=== PATIENT | female | born 1950 | race Caucasian/White ===

== ENCOUNTER → 2016-09-04 | Outpatient (CLI) | payer MEDICAID ==
[~2016-09-04] MED LIST: ADVAIR 250/5028 PUFF IN; ALBUTEROL-200 PUFFS/ IH; ASPIRIN 81MG TA81 MG PO; CIPRO 500MG TA500 MG PO; CLONAZEPAM0.5 M1 PO; FERROUS SULFAT325 M2 PO; FISH OIL1000 MG PO; FLUTICASONE 50M16 GM IN; GLIMEPIRIDE 2MG2 MG PO; GLYBURIDE AND M1 TA2 PO; Glyburide and M1 TAB PO; HYDROXYZINE 25M25 MG PO; LAMOTRIGINE100 MG PO; LISINOPRIL 5MG T5 MG NG; LISINOPRIL 5MG T5 MG PO; LOPRESSOR 25MG.25 M1 OR; LORATADINE 10MG10 M1 PO; METOPROLOL SUCC50 M1 PO; METOPROLOL50 MG PO; NOVOLIN 70/30 710 ML SC; NOVOLOG MIX 70/10 M1 SC; OMEPRAZOLE40 MG PO; PRAVACHOL80 MG PO; PREMARIN 0.3MG0.3 MG PO; PREMARIN0.3 MG PO; PRILOSEC40 MG PO; PROVENTIL0.09 MG/A1 INH; QUETIAPINE FUM100 MG PO; SEROQUEL 100MG100 MG PO; SINGULAIR10 MG PO; TEGRETOL 100MG100 MG PO; TESSALON PERLE100 MG PO; VENLAFAXINE HCL75 M1 PO; VENLAFAXINE HYD75 M1 PO
[2016-09-04 14:29] LABS: HEMOGLOBIN 12.8 g/dL (12.2-16.2); LYMPH # 2.5 K/mm3 (0.7-4.5); LYMPH % 45.5 % (10-50.0)
[2016-09-04 14:33] LABS: BUN 18 mg/dL (7-18)
[2016-09-04 14:35] LABS: GFR (ESTIMATED) 63 ML/MIN (59-)
[2016-09-05 04:38] LABS: Iron 88 ug/dL (27-139); Iron Saturation 35 % (15-55); UIBC 162 ug/dL (118-369)
== END ==
LOC: CARL-LAB 09:12
PROVIDERS: Nurse Practitioner Family
DX: F31.76 Bipolar disorder, in full remission, most recent episode depressed (principal); E11.65 Type 2 diabetes mellitus with hyperglycemia; E78.00 Pure hypercholesterolemia, unspecified; I10 Essential (primary) hypertension; D50.8 Other iron deficiency anemias

== ENCOUNTER 2016-12-22 20:02 | Observation (INO) | payer MEDICAID ==
[~2016-12-22] VITALS: Ht 170.2 cm; Wt 84.2 kg
[2016-12-22 20:04] VITALS: BP 145/80
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
[2016-12-22 21:57] LABS: HEMOGLOBIN 11.6 g/dL (12.2-16.2); LYMPH # 2.9 K/mm3 (0.7-4.5); LYMPH % 46.7 % (10-50.0)
[2016-12-22 22:28] LABS: BUN 26 mg/dL (7-18)
[2016-12-22 22:29] LABS: GFR (ESTIMATED) 50 ML/MIN (59-)
[2016-12-22 23:39] VITALS: BP 152/71
[2016-12-22 23:49] VITALS: BP 152/71
[2016-12-23 04:05] VITALS: BP 123/70
[2016-12-23 05:54] LABS: HEMOGLOBIN 11.7 g/dL (12.2-16.2); LYMPH # 2.7 K/mm3 (0.7-4.5); LYMPH % 48.3 % (10-50.0)
--- NOTE | 2016-12-23 06:02 | RADIOLOGY REPORT PS360 ---
CHEST-PORTABLE HISTORY: chest pain ORDERING PHYSICIAN: Teresa Gold MD PATIENT AGE: 66 years COMPARISON: 11/06/2014 FINDINGS: The cardiomediastinal silhouette and pulmonary vascularity are within normal limits. The lungs are clear without infiltrates, suspicious nodules, or pleural effusions. No acute bony abnormalities. IMPRESSION: Negative chest, no acute finding
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
[2016-12-23 08:00] VITALS: BP 148/71
--- NOTE | 2016-12-23 08:09 | PHARMACY CLINIC NOTE ---
Patient Demographics Patient Demographics Admission date: 12/22/16 Date: 12/23/16 Time: 0809 Allergies Coded Allergies: Penicillins (04/24/15) codeine (04/24/15) fexofenadine (From MIRLANDE) (04/24/15) iopamidol (04/24/15) meperidine (04/24/15) piroxicam (From FELDENE) (04/24/15) sulfamethoxazole (From BACTRIM) (04/24/15) trimethoprim (From BACTRIM) (04/24/15) HEIGHT- FT: 5 IN: 7.00 K.171 VTE General Information Labs: Laboratory Tests 12/23 12/22 0515 2130 Hematology Hgb (12.2 - 16.2 g/dL) 11.7 L 11.6 L Hct (37.0 - 47.0 %) 35.1 L 35.5 L Plt Count (142 - 424 K/mm3) 245 260 Disclaimer The following section includes nursing documentation that has been pulled in for pharmacy review. Patient's VTE score: 3 Patient's VTE Risk: LOW RISK Clinical trial participant? No VTE prophylaxis [id number] [id number] VTE prophylaxis ordered? Yes Type of prophylaxis/treatment: SIDNEY at 0809
[2016-12-23] MEDS ORDERED: LISINOPRIL10 MG PO (08:26)
[2016-12-23] MEDS ORDERED: LOPRESSOR 50 MG50 MG PO (08:27)
[2016-12-23] MEDS ORDERED: ATORVASTATIN CA20 M1 PO (08:28)
[2016-12-23] MEDS ORDERED: METFORMIN 500M500 M1 PO (08:28)
[2016-12-23] MEDS ORDERED: GABAPENTIN 600600 MG PO (08:29)
[2016-12-23] MEDS ORDERED: PIOGLITAZONE HC30 M1 PO (08:29)
[2016-12-23] MEDS ORDERED: CLONAZEPAM0.5 M1 PO (08:30)
--- NOTE | 2016-12-23 15:13 | RADIOLOGY REPORT PS360 ---
History and Indications: History of OR, hypertension, diabetes, hyperlipidemia, family history chest pain Procedure: Patient received a 0.4 mg of Lexiscan, resting heart rate was 67 bpm, resting blood pressure 175/82, with Lexiscan maximum heart rate achieved was 1 26 bpm which is less than 85% of the maximum predicted heart rate and a blood pressure was 146/71, with Lexiscan patient complained of nausea and mild malaise. Electrocardiogram: Resting electrocardiogram showed sinus rhythm, with Lexiscan there is [address] segment depression noted from the baseline EKG. The EKG portion of the Lexiscan Myoview is positive for ischemia. Cardiac stress and resting SPECT images: Cardiac stress and rest spect images were obtained using technetium 99 Myoview 10.5 mCi at rest and 30.2 mCi at stress, gated SPECT further analysis of segmental wall motion and calculation of the ejection fraction also done. Cardiac stress and rest SPECT images show decreased tracer activity in the anteroapical and apical wall which improves on the resting images is suggestive of reversible ischemia in that area. Computer derived ejection fraction is over 65% with no obvious regional wall motion abnormality, right ventricle is normal size and contractility. Conclusion: 1. The EKG portion of the Lexiscan Myoview is positive for ischemia. 2. Scintigraphic mild reversible ischemia involving the anteroapical and apical wall. Computer derived ejection fraction is over 65% with no obvious regional wall motion abnormality, right ventricle is normal size and contractility. 3. Abnormal Lexiscan Myoview study.
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
[2016-12-23 16:16] VITALS: BP 162/72
--- NOTE | 2016-12-23 16:43 | RADIOLOGY REPORT PS360 ---
PROCEDURE: 2-D M-mode and color Doppler study INDICATIONS FOR THE TEST: Chest pain COPD+ Heart Murmur Tobacco Smoking Palpitations Fatigue Syncope Edema Hypertension+Diabetes Mellitus+ Rheumatic Fever SOB [place] Obesity Hyperlipidemia Family History HD Additional History PSYCHOSIS PATIENT INFORMATION HEIGHT: 67 WEIGHT:186 GENDER: Female B/P: 2-D/M-MODE INTERPRETATION: 2-D MEASUREMENTS OBSERVED VALUES IN CMS Right Ventricular Dimension (RVDd) 2.4 Interventricular Septum (Thickness)(IVsd) 1.2 Left Ventricular Internal Dimensions(LVIDd) 4.9 Left Ventricular Posterior Wall (Thickness)(LVPWd) 1.0 Aortic Root 3.5 Aortic Cusp Separation 1.9 Left Atrial Dimensions (LAD) 4.2 2D 1. Left atrium is mildly enlarged, left ventricle is normal size, there is mild concentric left ventricular hypertrophy, visually estimated ejection fraction 55% with no obvious regional wall motion abnormality. 2. The right atrium and right ventricle are normal size and contractility. 3. The aortic valve is minimally thickened and calcified. 4. The mitral and tricuspid valve leaflets are minimally thickened. 5. The pulmonic valve is poorly visualized. 6. No significant pericardial effusion noted. DOPPLER INTERROGATION: Doppler interrogation of the aortic mitral and tricuspid valvular presence of mild mitral and tricuspid regurgitation. Tricuspid and jet velocity insufficient for calculation of the right ventricular systolic pressure, grade 1 diastolic dysfunction seen without tissue Doppler evidence of raised left atrial pressure. CONCLUSION: 1. Mildly enlarged left atrium, normal left ventricular size, mild concentric left ventricular hypertrophy, visually estimated ejection fraction 55% with no obvious regional wall motion abnormality. Grade 1 diastolic dysfunction seen without tissue Doppler evidence of raised left atrial pressure. 2. Mild mitral and tricuspid regurgitation. 3. No significant pericardial effusion noted.
[2016-12-23 19:40] VITALS: BP 153/79
[2016-12-24] VITALS (13 sets, daily range): BP systolic 132–159; BP diastolic 66–77
--- NOTE | 2016-12-24 08:36 | RADIOLOGY REPORT PS360 ---
CARDIAC CATHETERIZATION DATE OF CATHETERIZATION:12/24/2016 6:40 AM PROCEDURES: 1. Left heart catheterization, coronary angiography, left ventriculography INDICATION FOR TEST: 1. Angina pectoris, stress test with anterior ischemia, ST depression with adenosine Informed consent was obtained prior to the procedure. COMPLICATIONS: None ESTIMATED BLOOD LOSS: Less than 10 ml. TECHNIQUE: One percent lidocaine was used to anesthetize the right groin. The right femoral artery was accessed via the Seldinger technique. A 4-[place]ian sheath was placed in the right femoral artery. The JL-4 and JR-4 catheter was also used to perform left heart catheterization and left ventriculography. At the end of the procedure the patient was transferred to the post-op holding area in stable condition for arterial sheath removal. Opening aortic pressure: 160/80 LV pressure: 160/5, EDP 15 mm Hg There was a gradient of 10 mm on pullback across the aortic valve ANGIOGRAPHIC RESULTS: 1. The left main artery Free of disease 2. The left anterior descending artery Free of disease. Curly cue appearance c/w hypertensive heart disease. Large diagonal arising from proximal segment is free of disease 3. The circumflex artery Non dominant, moderate OM1 arising from proximal segment, large OM 2 arising from mid segment and entire circumflex coronary system is free of disease 4. The right coronary artery Large dominant vessel, proximal, mid, distal segment, and in its continuation as small PDA and large PL are all free of disease 5. The VELEZ ventriculogram reveals Normal global and regional LV systolic function, EF 65 % IMPRESSION: 1. Normal coronary arteries. 2. Angiographic appearance of vessels suggestive of hypertensive heart disease 3. Trivial aortic stenosis 4. Normal LV function PLAN: 1. Aggressive BP control 2. Evaluate for non coronary etiology of patient symptoms
--- NOTE | 2016-12-24 08:53 | ACUTE CARE PROGRESS NOTE (QUA) ---
Progress Notes Subjective Date 12/24/16 Time 0850 Patient/family reports: feeling better, no complaints Nursing reports: alert, no complaints Objective Findings Laboratory Tests 12/24/16 0542: POC Glucose 174 H 12/23/16 2102: POC Glucose 160 H 12/23/16 1103: POC Glucose 172 H Vital Signs Date Time Temp Pulse Resp B/P Pulse O2 O2 Flow FiO2 Ox Delivery Rate 12/24 0846 63 18 139/77 96 ROOM AIR 12/24 0759 63 18 139/77 94 ROOM AIR 12/24 0758 63 18 141/76 95 ROOM AIR 12/24 0757 64 18 151/78 97 ROOM AIR 12/24 0756 99.0 65 18 150/81 98 ROOM AIR 12/24 0752 99.0 65 18 150/81 98 12/24 0714 18 12/24 0525 99.0 12/24 0442 97.8 74 18 149/70 100 ROOM AIR 12/23 2111 98.9 94 20 153/79 96 12/23 1940 98.9 94 20 153/79 96 ROOM AIR 12/23 1616 97.7 89 18 162/72 95 ROOM AIR Current Medications Fentanyl Citrate 25 MCG PRN PRN IV Fentanyl Citrate 50 MCG PRN PRN IV Flumazenil 0.2 MG PRN PRN IV Heparin Sodium (Beef Lung) 5,000 UNITS PRN PRN IV Heparin Sodium/Sodium Chloride 3,000 UNITS PRN PRN IV Midazolam HCl 1 MG PRN PRN IV Midazolam HCl 1 MG PRN PRN IV Naloxone HCl 0.4 MG S5AYIADA PRN IV Nitroglycerin 800 MCG PRN PRN IV Verapamil HCl 5 MG PRN PRN IV Sodium Chloride 8 ML BID IV (UNV) Famotidine 20 MG ONCE ONE IV (UNV) Methylprednisolone Sodium Succinate 125 MG ONCE ONE IV (UNV) Methylprednisolone Sodium Succinate 0 .STK-MED ONE .ROUTE (DC) Iopamidol 50 ML ONCE ONE IV (DC) Lidocaine HCl 20 ML ONCE ONE IJ (DC) Diphenhydramine HCl 50 MG ONCE ONE IV (DC) Sodium Chloride 10 ML PRN PRN IV Sodium Chloride 1,000 ML .Q25H IV Nitroglycerin 0 .STK-MED ONE IV (DC) Diphenhydramine HCl 0 .STK-MED ONE .ROUTE (DCr) Heparin Sodium (Beef Lung) 0 .STK-MED ONE .ROUTE (DC) Heparin Sodium/Sodium Chloride 1,500 ML .STK-MED ONE IV (DC) Lidocaine HCl 0 .STK-MED ONE .ROUTE (DC) Sodium Chloride 1,000 ML .STK-MED ONE IV (DC) Sodium Chloride 1,000 ML .STK-MED ONE IV (DC) Montelukast Sodium 10 MG QHS PO Quetiapine Fumarate 100 MG QHS PO Sodium Chloride 1,000 ML .STK-MED ONE IV (DC) Regadenoson 0.4 MG ONCE ONE IV (DC) Aspirin 81 MG DAILY PO Carbamazepine 150 MG DAILY PO Lisinopril 5 MG DAILY PO Metoprolol Tartrate 25 MG BID PO Venlafaxine HCl 75 MG DAILY PO Sodium Chloride 10 ML PRN PRN IV Diagnostic Test (Pha) 1 EACH W/MEALS&HS FS Insulin Human [rDNA origin] SEE ADMIN CRITERIA FOR LOW INTENSITY SS W/MEALS&HS SC Acetaminophen 650 MG Q4HP PRN PO Ondansetron HCl 4 MG Q6HP PRN IV Sodium Chloride 1,000 ML .Q20H IV Sodium Chloride 10 ML PRN PRN IV (DC) Last VS-Temp:99.0 B/P:139/77 Pulse:63 Resp:18 SaO2:96 ROOM AIR Last weight lbs:185 oz:9 K.171 Method:Bed Scales Exam General appearance: normal appearance, alert, awake, no acute distress Eyes: normal exam ENT: normal exam Neck: normal inspection, no carotid bruit, full range of motion Cardiovascular: normal exam, regular rate & rhythm Respiratory: normal exam, clear to auscultation, good air movement, no respiratory distress ABD: normal exam, normal bowel sounds, soft Genitourinary: normal voiding & quantity Extremities: normal exam, moves all, no peripheral edema Musculoskeletal: normal exam Skin: normal exam, warm Neuro: normal exam, alert, intact, oriented Reviewed: allergies, medications, vital signs, lab results, radiology report, consult note Assessment/Plan Problem List 1. 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 Chest pain Qualifiers: Chest pain type: precordial pain Qualified Code: R07.2 - Precordial pain 3. Renal insufficiency Patient condition Stable Plan: initiate discharge plan This inpt stay is expected to cross 2 MNs from start of care No Comments: rounded with missy choe dc later today if ok with cardiology at 0846
--- NOTE | 2016-12-24 13:50 | DISCHARGE SUMMARY STANDARD ---
Demographics Admit date: 12/22/16 Discharge date: 12/24/16 History of present illness History of present illness 66-year-old white female with history of diabetes, hypertension and hyperlipidemia presented to the emergency last evening for onset of LEFT neck discomfort, LEFT chest discomfort and discomfort in the LEFT arm that onset about 6 PM last evening. Patient states symptoms worse with bending over. She denies any recent fever, chills, nausea or diaphoresis. Appreciable shortness of breath. Symptoms seemed to resolve after nitroglycerin in the ambulance with no further chest pain overnight on nitroglycerin paste. Electrocardiogram was sinus without acute ST segment changes. Troponins have returned normal overnight. She has had no further chest pain. Cardiology consulted for evaluation and recommendations. Hospital Course Hospital Course: chest pain-cardiology consult- heart cath --IMPRESSION: 1. Normal coronary arteries. 2. Angiographic appearance of vessels suggestive of hypertensive heart disease 3. Trivial aortic stenosis 4. Normal LV function PLAN: 1. Aggressive BP control 2. Evaluate for non coronary etiology of patient symptoms Discharge diagnoses Problem List 1. Diabetes mellitus 2. Chest pain 3. Renal insufficiency Medications Medications: Discharge meds are as noted. Follow up Follow up in office in: 7 DAYS with: Maximus Jim MD Comment: rounded with harish. at 1350
[2016-12-24] MEDS ORDERED: LISINOPRIL 5MG T5 MG PO (13:55)
[2016-12-24] MEDS ORDERED: COREG25 MG PO (13:55)
== END 2016-12-24 15:25 | disposition home or self-care (01) ==
LOC: ER 20:02 → 2ND 22:01
PROVIDERS: Emergency Medicine; Internal Medicine
PROC: B2111ZZ Fluoroscopy of Multiple Coronary Arteries using Low Osmolar Contrast (ICD-10-PCS; 2016-12-24)
PROC: B2151ZZ Fluoroscopy of Left Heart using Low Osmolar Contrast (ICD-10-PCS; 2016-12-24)
PROC: 4A023N7 Measurement of Cardiac Sampling and Pressure, Left Heart, Percutaneous Approach (ICD-10-PCS; principal; 2016-12-24 07:12)
DX: R07.9 Chest pain, unspecified (principal); R94.39 Abnormal result of other cardiovascular function study; I10 Essential (primary) hypertension; E11.9 Type 2 diabetes mellitus without complications; J44.9 Chronic obstructive pulmonary disease, unspecified
CPT/HCPCS: C1725; C1769; G0378; J1644; Q9967